=== PATIENT | male | born 1980 | race Caucasian/White ===

== ENCOUNTER 2020-07-12 09:40 | Emergency (ER) | payer OTHER ==
[~2020-07-12] VITALS: Ht 188 cm; Wt 83.9 kg
[2020-07-12 10:43] VITALS: BP 132/72
[2020-07-13] MEDS ORDERED: MEDROLDOSEPACK PO (15:56)
[2020-07-13] MEDS ORDERED: TRIAMCINOLONE A80 G2 TOP (15:56)
== END 2020-07-12 10:44 | disposition home or self-care (01) ==
LOC: M.ERS 09:40
DX: L25.9 Unspecified contact dermatitis, unspecified cause (principal)

== ENCOUNTER 2020-07-13 15:34 | Emergency (ER) | payer OTHER ==
[~2020-07-13] VITALS: Ht 188 cm; Wt 83.9 kg
[2020-07-13] MEDS ORDERED: MEDROLDOSEPACK PO (15:56)
[2020-07-13] MEDS ORDERED: TRIAMCINOLONE A80 G2 TOP (15:56)
[2020-07-13 16:38] VITALS: BP 139/81
== END 2020-07-13 16:39 | disposition home or self-care (01) ==
LOC: M.ERS 15:34
DX: L23.7 Allergic contact dermatitis due to plants, except food (principal); F17.210 Nicotine dependence, cigarettes, uncomplicated

== ENCOUNTER 2020-08-09 17:47 | Emergency (ER) | payer OTHER ==
[~2020-08-09] VITALS: Ht 185.4 cm; Wt 83.9 kg
[~2020-08-09 17:47] MED LIST: MEDROLDOSEPACK PO; TRIAMCINOLONE A80 G2 TOP
[2020-08-09] MEDS ORDERED: IBUPROFEN 800800 M1 PO (18:43)
[2020-08-09] MEDS ORDERED: HYDROCODON-ACE1 EA11 PO (18:50)
[2020-08-09 19:24] VITALS: BP 134/73
== END 2020-08-09 19:25 | disposition home or self-care (01) ==
LOC: M.ERS 17:47
DX: M25.422 Effusion, left elbow (principal); Z87.828 Personal history of other (healed) physical injury and trauma

== ENCOUNTER 2020-08-12 19:05 | Emergency (ER) | payer OTHER ==
[~2020-08-12] VITALS: Ht 185.4 cm; Wt 83.9 kg
[~2020-08-12 19:05] MED LIST changes: +HYDROCODON-ACE1 EA11 PO; +IBUPROFEN 800800 M1 PO
[2020-08-12 21:03] VITALS: BP 133/54
== END 2020-08-12 21:03 | disposition home or self-care (01) ==
LOC: M.ERS 19:05
DX: S42.402A Unspecified fracture of lower end of left humerus, initial encounter for closed fracture (principal); W18.39XA Other fall on same level, initial encounter; Y93.89 Activity, other specified; Y92.89 Other specified places as the place of occurrence of the external cause; Y99.8 Other external cause status

== ENCOUNTER 2020-10-16 13:34 | Emergency (ER) | payer OTHER ==
[~2020-10-16] VITALS: Ht 180.3 cm; Wt 83.9 kg
[2020-10-16] MEDS ORDERED: MEDROLDOSEPACK PO (14:11)
[2020-10-16 14:30] VITALS: BP 129/82
== END 2020-10-16 14:30 | disposition home or self-care (01) ==
LOC: M.ERS 13:34
DX: L25.5 Unspecified contact dermatitis due to plants, except food (principal)